=== PATIENT | female | born 1950 | race Caucasian/White ===

== ENCOUNTER 2017-06-06 13:29 | Emergency (ER) | payer MEDICARE ==
[2017-06-06 13:44] VITALS: BP 152/87
--- NOTE | 2017-06-06 14:46 | UC ---
Skin Complaint HPI - HPI Summary HPI Summary: 66 YEAR OLD IN [facility] PRESENTS WITH SEVERE LIP SWELLING AND DIFFICULTY BREATHING. - History of Current Complaint Chief Complaint: UCSkin Time Seen by Provider: 06/06/17 14:46 Stated Complaint: SWOLLEN LIPS Hx Obtained From: Patient Onset/Duration: Sudden Onset Skin Exposure Onset/Duration: Minutes Ago Onset Severity: Severe Current Severity: Severe Pain Scale Used: 0-10 Numeric - Allergy/Home Medications Allergies/Adverse Reactions: Allergies Allergy/AdvReac Type Severity Reaction Status Date / Time Citalopram [From Celexa] Allergy Itching Verified 06/06/17 13:44 Morphine Allergy Itching, Verified 06/02/14 08:03 READNESS, SWELLING Home Medications: Home Medications Tobramycin 0.3% OPHTH.ANTONINA* 1 drop BOTH EYES Q4H 06/06/17 [History Confirmed 01/16] Review of Systems Constitutional: Negative Skin: Other - LIP SWELLING Eyes: Negative ENT: Other - LIP SWELLING Respiratory: Negative Cardiovascular: Negative Gastrointestinal: Negative Genitourinary: Negative Motor: Negative Neurovascular: Negative Musculoskeletal: Negative Neurological: Negative Psychological: Negative All Other Systems Reviewed And Are Negative: Yes PMH/Surg Hx/FS Hx/Imm Hx Previously Healthy: Yes - Surgical History Surgical History: Yes Surgery Procedure, Year, and Place: L knee replacement, Gastro bypass, tubal, R carpel tunnel, choley, R shoulder - Social History Alcohol Use: None Substance Use Type: None Smoking Status (MU): Former Smoker Type: Cigarettes Amount Used/How Often: 2 ppd Length of Time of Smoking/Using Tobacco: 20 yrs When Did the Patient Quit Smoking/Using Tobacco: 1999 Physical Exam Triage Information Reviewed: Yes Vital Signs: Initial Vital Signs Temp 37.0 C 06/06/17 13:35 Pulse 74 06/06/17 13:35 Resp 16 06/06/17 13:35 BP 152/87 06/06/17 13:35 Pulse Ox 100 06/06/17 13:35 Vital Signs Reviewed: Yes Eye Exam: Normal ENT Exam: Normal Dental Exam: Normal Neck exam: Normal Neck: Positive: 1 Respiratory Exam: Normal Cardiovascular Exam: Normal Abdominal Exam: Normal Musculoskeletal Exam: Normal Neurological Exam: Normal Psychological Exam: Normal Skin: Positive: Other - LIP SWELLING Course/Dx - Diagnoses Provider Diagnoses: LIP SWELLING Discharge - Discharge Plan Condition: Stable Disposition: HOME Referrals: Wen Noble MD [Primary Care Provider] -
[2017-06-06] MEDS ORDERED: EPINEPHrine AMP 1 MG/ML IM PRN (14:49)
[2017-06-06] MEDS ORDERED: methylPREDNISolone 125 MG* 2 ML VIAL IM ONE (14:50)
[2017-06-06] MEDS ORDERED: NS 0.9% 1000 ML* 1,000 ML IV ONE (14:50)
[2017-06-06] MEDS ORDERED: diPHENhydraMINE IV* 50 MG/ML 1 ml VIAL (BENADRYL) IV ONE (15:00)
[2017-06-06] MEDS ORDERED: Famotidine IV* 10 MG/ML 2 ML (20 mg) ONE (15:01)
[2017-06-06] MEDS ORDERED: EPINEPHRINE 1 MG/ML 1 ML VIAL ONE (15:19)
== END 2017-06-06 15:20 | disposition home or self-care (01) ==
LOC: UCEAST 13:29
DX: R60.9 Edema, unspecified (principal); Z88.6 Allergy status to analgesic agent
CPT/HCPCS: 96374; 96375; 99213; G0463; J1200; J2930

== ENCOUNTER 2017-06-06 15:30 | Inpatient (IN) | payer MEDICARE ==
[2017-06-06] MEDS ORDERED: Polyethylene Glycol 3350* 17 GM PACKET PO PRN (16:42)
[2017-06-06] MEDS ORDERED: diPHENhydraMINE PO* 25 MG PO SCH (17:00)
--- NOTE | 2017-06-06 17:07 | ED ---
Tawny Milligan Thomas, scribed for Jose Luis Marinelli MD on 06/06/17 at 1607 . Allergic Reaction/Systemic - HPI Summary HPI Summary: The pt is a 66 y/o F referred from [facility] and c/o a lip swelling that began this today at 09:00. She c/o lip swelling and throat tightness that has increased throughout the day but is somewhat relieved since presenting to urgent care. The patient has been treated with Epinephrine 0.3mg, which relieved her symptoms. She was also given Benadryl 50mg IV, Solu-Medrol 125mg IV, and Pepcid 20mg IV. Pt denies rash, pruritus, tongue swelling, CP, and SOB. She has been on Lisinopril for many years. She also recently started an antibiotic eye drop. PMHx: HTN, arthritis, depression. PSHx: Willam-en-Y gastric bypass. SHx: no smoking, no alcohol use. FHx: osteoarthritis, CAD. - History of Current Complaint Chief Complaint: EDAllergicReaction Time Seen by Provider: 06/06/17 15:51 Hx Obtained From: Patient Onset/Duration: Gradual Onset, Started hours ago - onset since this AM at 09:00 , Still Present Timing: Constant Pain Intensity: 0 Pain Scale Used: 0-10 Numeric Character: Swelling - to lip Aggravating Factor(s): Nothing Alleviating Factor(s): Other - Medication as detailed in HPI Associated Signs And Symptoms: Positive: Throat Tightening. Negative: Chest Pain, Difficulty Breathing, Rash, Other: - NEGATIVE: pruritus, tongue swelling, SOB - Allergies/Home Medications Allergies/Adverse Reactions: Allergies Allergy/AdvReac Type Severity Reaction Status Date / Time Citalopram [From Celexa] Allergy Itching Verified 06/06/17 13:44 Morphine Allergy Itching, Verified 06/02/14 08:03 READNESS, SWELLING PMH/Surg Hx/FS Hx/Imm Hx Previously Healthy: No Cardiovascular History: Reports: Hx Hypertension Musculoskeletal History: Reports: Hx Arthritis Psychiatric History: Reports: Hx Depression - Surgical History Surgery Procedure, Year, and Place: L knee replacement, Gastro bypass, tubal, R carpel tunnel, choley, R shoulder - Immunization History Immunizations Up to Date: Yes Infectious Disease History: No Infectious Disease History: Denies: Traveled Outside the [place] in Last 30 Days - Family History Known Family History: Positive: Cardiac Disease, Other - Osteoarthritis - Social History Alcohol Use: None Hx Substance Use: No Substance Use Type: Reports: None Hx Tobacco Use: No Smoking Status (MU): Former Smoker Type: Cigarettes Amount Used/How Often: 2 ppd Length of Time of Smoking/Using Tobacco: 20 yrs Review of Systems Negative: Fever Positive: Other - Lip swelling, throat tightness; NEGATIVE: tongue swelling Negative: Chest Pain Negative: Shortness Of Breath Negative: Rash, Other - NEGATIVE: pruritus All Other Systems Reviewed And Are Negative: Yes Physical Exam Vital Signs On Initial Exam: Initial Vitals Temp Pulse Resp BP Pulse Ox 98 F 88 16 174/82 99 06/06/17 15:38 06/06/17 15:38 06/06/17 15:38 06/06/17 15:38 06/06/17 15:38 - [place] Coma Scale Coma Scale Total: 15 Diagnostics - Vital Signs Vital Signs Temp Pulse Resp BP Pulse Ox 06/06/17 15:57 91 17 154/80 99 06/06/17 15:38 98 F 88 16 174/82 99 - Laboratory Lab Statement: Any lab studies that have been ordered have been reviewed, and results considered in the medical decision making process. Re-Evaluation - Re-Evaluation First Eval Re-Evaluation Time: 17:03 Change: Improved Comment: The patient received solumedrol,benadryl, epi and pepcid. she has slight swelling of the upper lip and also lower lip. Her vitals are ok, and her tongue, throat and breathing are normal in feeling and on exam. I am not giving more epi at this point. She is being admitted to the hospitalists. Allergic Reaction Course/Dx - Course Course Of Treatment: 66 yr old with angioedema, and stable at this point. Admission for further obs to the hospitalists. Dr Jackson calling ENT and they will put in ICU for close monitoring. - Diagnoses Provider Diagnoses: Angioedema - Provider Notifications Discussed Care Of Patient With: Stacy Jackson Time Discussed With Above Provider: 16:06 Instructed by Provider To: Other - I consulted with Dr. Jackson, hospitalist, who will admit the patient to [facility]. Discharge - Discharge Plan Condition: Good Disposition: ADMITTED TO [facility] documentation as recorded by the Tawny bragg Thomas accurately reflects the service I personally performed and the decisions made by me, Jose Luis Marinelli MD.
[2017-06-06] MEDS ORDERED: methylPREDNISolone 125 MG* 2 ML VIAL IV ONE (17:12)
[2017-06-06] MEDS ORDERED: diPHENhydraMINE IV* 50 MG in NS 0.9% 50 ML* 50 ML IVPB ONE (17:12)
[2017-06-06] MEDS ORDERED: Famotidine IV* 10 MG/ML 2 ML (20 mg) IV SLOW PU ONE (17:12)
[2017-06-06 17:38] LABS: Hematocrit 37 % (35-47); Hemoglobin 12.3 g/dl (12.0-16.0); Mean Corpuscular HGB Conc 33 g/dl (31-36); Mean Corpuscular Hemoglobin 30 pg (27-31); Mean Corpuscular Volume 89 fL (80-97); Mean Platelet Volume 9 um3 (7.4-10.4); Red Blood Count 4.16 10^6/ul (4.0-5.4); Red Cell Distribution Width 14 % (10.5-15); White Blood Count 7.3 10^3/ul (3.5-10.8)
[2017-06-06 17:53] LABS: BUN/Creatinine Ratio 15.6 (8-20); Calcium 9.5 mg/dL (8.6-10.3); EGFR African American 64.4 (>60); EGFR Non-African American 50.1 (>60); Potassium 4.3 mmol/L (3.5-5.0)
--- NOTE | 2017-06-06 19:25 | HP ---
CC: Dr. Noble * HISTORY AND PHYSICAL: DATE OF ADMISSION: 06/06/17 TIME OF EVALUATION: 5 p.m. PRIMARY CARE PROVIDER: Dr. Noble. CHIEF COMPLAINT: "My lip is swollen." HISTORY OF PRESENT ILLNESS: Ms. Hernandez is a 66-year-old lady with a past medical history of chronic pain, fibromyalgia, hypertension that presented to [facility] with complaints of lip swelling. The patient states that 3 days ago, she was diagnosed with an eye infection and prescribed tobramycin eye drops that she was taking without issue. This morning , she woke up in her usual state of health and around 10, she started to feel that her bottom lip was swollen. She contacted her PCP and was advised to go to [facility]. There, the swelling had become more severe and she received epinephrine, Solu-Medrol, famotidine, and Benadryl, and was sent to the emergency room for further evaluation. Initially during our interview, the patient stated that the swelling was mostly resolved and her lip felt almost back to normal. As we were finishing our interview, the patient started to complain her upper lip was getting swollen. Please note that she had no change in voice, no difficulty swallowing, no tongue edema. She did have allergic reactions before, but no angioedema. She has also been on lisinopril for hypertension for more than 10 years. She denies itching, chest pain, palpitations, fever, chills, cough, shortness of breath, nausea, vomiting, rash or any other complaints. PAST MEDICAL HISTORY: 1. Hypertension. 2. Fibromyalgia. 3. Chronic pain. MEDICATIONS: 1. Bupropion XL 150 mg p.o. daily. 2. Celecoxib 200 mg p.o. daily. 3. Cyclobenzaprine 10 mg p.o. at bedtime. 4. Gabapentin 300 mg p.o. t.i.d. 5. Lisinopril 10 mg p.o. daily. 6. Pantoprazole 40 mg p.o. daily. 7. MiraLAX 17 g p.o. daily p.r.n. constipation. 8. Tobramycin 1 drop both eyes q.4 hours. ALLERGIES: With MORPHINE and CITALOPRAM, the patient had itching. FAMILY HISTORY: Father had a history of coronary artery disease. SOCIAL HISTORY: The patient was a smoker. She quit 20 years ago. No history of alcohol or drug use. Surrogate decision maker is her son, Troy Purdy. Phone number is [phone]. REVIEW OF SYSTEMS: A 14-point review of systems was performed and all the pertinent negative and positive findings are in the HPI. PHYSICAL EXAMINATION GENERAL: The patient is a pleasant elderly lady sitting up in the ED stretcher , in no acute distress. VITAL SIGNS: Temperature 98.0, heart rate is 91, respiratory rate is 17, oxygen saturation is 99% on room air, blood pressure is 154/80. HEENT: Pupils are equal. Moist mucous membranes. There is minimal bottom lip edema and some edema on her upper lip middle part, but there is no tongue swelling and her voice is normal. CHEST: Breath sounds clear bilaterally. No added sounds. CVS: Normal S1, S2. Regular rate and rhythm. ABDOMEN: Soft. Bowel sounds are present. EXTREMITIES: No edema. NEUROLOGIC: She is alert, awake, oriented x3. Able to move all 4 extremities. SKIN: No rashes. LABORATORY DATA: The patient had no laboratory tests done. CBC and BMP are ordered at the time of this dictation. ASSESSMENT AND PLAN: Ms. Hernandez is a 66-year-old lady with a past medical history of hypertension, chronic pain, fibromyalgia, had developed angioedema with recurrence after treatment in the emergency room. 1. Angioedema. It could be secondary to the new eye drop for infection as this is a new medication, but she is also on an CARLOS inhibitor. Both drugs will be discontinued. Initially, the patient was going to be admitted to the medical floor but as she is having recurrence of her symptoms, she will be admitted to the intensive care unit. We are going to continue steroids, H1 and H2 blockers. If her symptoms continue to worsen, she may require more epinephrine, but I believe at this point the symptoms are still mild and we can watch her for now. I contacted ENT showroom sales consultant (Dr. Cantu) just to make him aware that we have a patient with angioedema in the intensive care unit. At this point, she has no signs of airway compromise but he is aware of the possibility of the need for an emergent consultation overnight. 2. Hypertension. I am going to discontinue her lisinopril at this point and we are going to monitor her blood pressure for now. If it trends up, we are probably going to start her on amlodipine as she should avoid CARLOS inhibitors in the future. 3. Chronic pain. We will continue her usual medications. 4. DVT prophylaxis. The patient has a score of 3 on the DVT Prophylaxis Risk Assessment Guide and she will be started on subcutaneous heparin. 5. Code status. The patient is full. TIME SPENT: Approximately 60 minutes was spent with patient interview, medical records review, physical examination to complete admission, more than half of this time was spent [id number] with patient and coordination of care. [id number]/[facility] #: [id number] ZAHIDA
[2017-06-06] MEDS: Acetaminophen TAB* 325 MG PO PRN (20:13)
[2017-06-06] MEDS ORDERED: Famotidine TAB* 20 MG PO SCH (21:00)
[2017-06-06] MEDS ORDERED: Cyclobenzaprine TAB* 10 MG PO SCH (21:00)
[2017-06-06] MEDS ORDERED: Gabapentin CAP(*) 300 MG PO SCH (21:00)
[2017-06-06] MEDS: Ciprofloxacin 0.3% OPTH.SOL* 2.5 ML BTL BOTH EYES SCH ×2 (21:24→21:38)
[2017-06-06] MEDS: Heparin VIAL(*) 5000 UNITS/ML VIAL (FIVE THOUSAND) SUBCUT SCH (21:30)
[2017-06-06] MEDS: Famotidine IV* 10 MG/ML 2 ML (20 mg) IV SLOW PU SCH (21:30)
[2017-06-06] MEDS: diPHENhydraMINE IV* 50 MG in NS 0.9% 50 ML* 50 ML IVPB SCH (23:11)
[2017-06-07] MEDS: Ciprofloxacin 0.3% OPTH.SOL* 2.5 ML BTL BOTH EYES SCH ×3 (02:20→10:07)
[2017-06-07] MEDS ORDERED: Gabapentin CAP(*) 300 MG ONE (03:12)
[2017-06-07] MEDS: diPHENhydraMINE IV* 50 MG in NS 0.9% 50 ML* 50 ML IVPB SCH ×2 (05:02→10:45)
[2017-06-07] MEDS: Heparin VIAL(*) 5000 UNITS/ML VIAL (FIVE THOUSAND) SUBCUT SCH (06:06)
[2017-06-07] MEDS ORDERED: Omeprazole CAP* 20 MG PO SCH (07:30)
[2017-06-07] MEDS ORDERED: celeCOXIB CAP* 100 MG PO SCH (08:30)
[2017-06-07] MEDS ORDERED: predniSONE TAB* 20 MG PO SCH (08:30)
[2017-06-07] MEDS ORDERED: BuPROPion XL* 150 MG TAB.XL PO SCH (09:00)
[2017-06-07] MEDS ORDERED: methylPREDNISolone SOD 40 MG* 1 ML VIAL IV SCH (09:00)
[2017-06-07] MEDS ORDERED: Influenza VAC *QUAD* 2017-18* 0.5 ML SYRINGE IM ONE (09:00)
[2017-06-07] MEDS ORDERED: Gabapentin CAP(*) 300 MG PO SCH ×2 (09:00→21:00)
[2017-06-07] MEDS: Famotidine IV* 10 MG/ML 2 ML (20 mg) IV SLOW PU SCH (09:20)
--- NOTE | 2017-06-07 10:04 | PN ---
Subjective Date of Service: 06/07/17 Interval History: Patient seen and examined at bedside. Patient denies any shortness of breath and reports that her lip swelling has completely resolved. SBP 120-140s. Denies pain.. Has not yet been up out of bed. Family History: Unchanged from Admission Social History: Unchanged from Admission Past Medical History: Unchanged from Admission Objective Active Medications: Acetaminophen (Tylenol Tab*) 650 mg PO Q6H PRN Bupropion HCl (Wellbutrin Xl *) 150 mg PO DAILY GONZALES Celecoxib (Celebrex Cap*) 200 mg PO DAILY WITH MEAL GONZALES Ciprofloxacin HCl (Cipro 0.3% Opth*) 1 drop BOTH EYES Q4HR GONZALES Cyclobenzaprine HCl (Flexeril Tab*) 10 mg PO BEDTIME GONZALES Famotidine (Pepcid Iv*) 20 mg IV SLOW PU BID GONZALES Gabapentin (Neurontin Cap(*)) 300 mg PO 0900 GONZALES Gabapentin (Neurontin Cap(*)) 600 mg PO 2100 GONZALES Heparin Sodium (Porcine) (Heparin Vial(*)) 5,000 units SUBCUT Q8HR GONZALES Diphenhydramine HCl 50 mg/ (Sodium Chloride) 51 mls @ 102 mls/hr IVPB Q6H GONZALES Methylprednisolone Sodium Succinate (Solu-Medrol 40 Mg) 40 mg IV Q12H GONZALES Omeprazole (Prilosec Cap*) 20 mg PO DAILY@0730 GONZALES Polyethylene Glycol/Electrolytes (Miralax*) 17 gm PO DAILY PRN Vital Signs 06/06/17 06/06/17 06/06/17 16:30 16:43 17:00 Temperature 97.4 F Pulse Rate 88 92 Respiratory 19 17 Rate Blood Pressure 154/77 179/82 (mmHg) O2 Sat by Pulse 100 99 Oximetry 06/06/17 06/06/17 06/06/17 17:28 17:30 18:01 Temperature Pulse Rate 86 Respiratory 20 14 10 Rate Blood Pressure 155/84 (mmHg) O2 Sat by Pulse 99 Oximetry 06/06/17 06/06/17 06/06/17 18:04 18:06 18:09 Temperature 97.4 F Pulse Rate 88 80 86 Respiratory 19 24 21 Rate Blood Pressure 165/89 182/95 172/98 (mmHg) O2 Sat by Pulse 99 99 100 Oximetry 06/06/17 06/06/17 06/06/17 18:15 18:33 18:45 Temperature Pulse Rate 83 88 81 Respiratory 35 20 17 Rate Blood Pressure 177/97 165/89 161/90 (mmHg) O2 Sat by Pulse 100 98 98 Oximetry 06/06/17 06/06/17 06/06/17 19:00 19:15 19:31 Temperature Pulse Rate 83 88 89 Respiratory 27 17 19 Rate Blood Pressure 152/95 155/94 164/91 (mmHg) O2 Sat by Pulse 97 96 98 Oximetry 06/06/17 06/06/17 06/06/17 19:43 19:45 20:00 Temperature 99.8 F Pulse Rate 90 Respiratory 15 23 Rate Blood Pressure 151/93 (mmHg) O2 Sat by Pulse 97 Oximetry 06/06/17 06/06/17 06/06/17 20:15 20:30 20:43 Temperature 99 F Pulse Rate 91 90 Respiratory 20 25 Rate Blood Pressure 172/94 165/93 (mmHg) O2 Sat by Pulse 98 98 Oximetry 06/06/17 06/06/17 06/06/17 20:46 21:00 21:16 Temperature Pulse Rate 95 92 99 Respiratory 22 20 16 Rate Blood Pressure 169/94 154/87 (mmHg) O2 Sat by Pulse 96 96 96 Oximetry 06/06/17 06/06/17 06/06/17 21:30 21:45 22:00 Temperature Pulse Rate 102 101 100 Respiratory 27 29 17 Rate Blood Pressure 181/87 159/102 144/92 (mmHg) O2 Sat by Pulse 97 98 96 Oximetry 06/06/17 06/06/17 06/06/17 22:15 22:30 22:45 Temperature Pulse Rate 97 93 92 Respiratory 17 18 18 Rate Blood Pressure 141/85 138/83 132/80 (mmHg) O2 Sat by Pulse 93 91 90 Oximetry 06/06/17 06/06/17 06/06/17 23:00 23:15 23:23 Temperature 98.8 F Pulse Rate 92 91 Respiratory 18 17 Rate Blood Pressure 137/80 135/79 (mmHg) O2 Sat by Pulse 89 95 Oximetry 06/06/17 06/06/17 06/07/17 23:31 23:45 00:00 Temperature Pulse Rate 84 84 82 Respiratory 14 17 17 Rate Blood Pressure 142/75 127/83 141/83 (mmHg) O2 Sat by Pulse 98 94 95 Oximetry 06/07/17 06/07/17 06/07/17 00:08 00:15 00:30 Temperature Pulse Rate 85 82 89 Respiratory 17 17 16 Rate Blood Pressure 134/90 130/75 (mmHg) O2 Sat by Pulse 94 95 94 Oximetry 06/07/17 06/07/17 06/07/17 00:46 01:00 01:15 Temperature Pulse Rate 88 89 89 Respiratory 14 17 17 Rate Blood Pressure 137/79 138/81 142/87 (mmHg) O2 Sat by Pulse 97 96 95 Oximetry 06/07/17 06/07/17 06/07/17 02:00 03:00 04:00 Temperature 98.1 F Pulse Rate 94 81 79 Respiratory 17 23 23 Rate Blood Pressure 142/78 130/90 (mmHg) O2 Sat by Pulse 96 98 100 Oximetry 06/07/17 06/07/17 06/07/17 04:02 05:00 05:58 Temperature Pulse Rate 82 74 Respiratory 14 15 14 Rate Blood Pressure 157/103 125/75 (mmHg) O2 Sat by Pulse 95 96 Oximetry 06/07/17 06/07/17 06/07/17 06:00 07:00 08:00 Temperature 98.5 F Pulse Rate 73 71 Respiratory 14 13 15 Rate Blood Pressure 127/77 129/93 (mmHg) O2 Sat by Pulse 97 100 Oximetry 06/07/17 06/07/17 06/07/17 08:02 08:04 09:00 Temperature Pulse Rate 82 84 77 Respiratory 15 16 10 Rate Blood Pressure 154/93 129/87 (mmHg) O2 Sat by Pulse 88 95 99 Oximetry Oxygen Devices in Use Now: None Appearance: sitting up in bed, NAD Eyes: No Scleral Icterus, PERRLA Ears/Nose/Mouth/Throat: NL Teeth, Lips, Gums, Clear Oropharnyx, - - lip swelling resolved. Neck: NL Appearance and Movements; NL JVP Respiratory: Symmetrical Chest Expansion and Respiratory Effort, Clear to Auscultation Cardiovascular: NL Sounds; No Murmurs; No JVD, RRR Abdominal: NL Sounds; No Tenderness; No Distention Extremities: No Edema Skin: No Rash or Ulcers Neurological: Alert and Oriented x 3 Lines/Tubes/Other Access: Clean, Dry and Intact Peripheral IV Nutrition: Taking PO's Result Diagrams: 06/06/17 17:21 06/06/17 17:21 Assess/Plan/Problems-Billing Patient is a 66 y/o F w/ PMH significant for HTN, chronic pain, fibromyalgia who developed angioedema with reoccurence in the emergency room. - Patient Problems (1) Angioedema (2) HTN (hypertension) (3) Chronic pain (4) Fibromyalgia (5) DVT prophylaxis (6) Full code status Status and Disposition: Inpatient for angioedema. Patient stable to be discharged home with steroid taper.
[2017-06-07 10:28] VITALS: BP 131/76
[2017-06-07] MEDS ORDERED: amLODIPine TAB* 5 MG PO SCH (11:00)
[2017-06-07] MEDS: Acetaminophen TAB* 325 MG PO PRN (11:07)
--- NOTE | 2017-06-08 02:51 | DS ---
CC: Dr. Noble * DISCHARGE SUMMARY: DATE OF ADMISSION: 06/06/17 DATE OF DISCHARGE: 06/07/17 PRIMARY CARE PHYSICIAN: Dr. Wen Noble. ATTENDING PHYSICIAN: Kaveh Mayo MD * (report dictated by Lindsay Sepulveda NP). PRIMARY DIAGNOSIS: Angioedema. SECONDARY DIAGNOSES: 1. Hypertension. 2. Chronic pain. MEDICATIONS AT DISCHARGE: New medications: 1. Cipro eye drops 1 drop both eyes every 4 hours. 2. Prednisone taper 10 mg tablets 4 tablets for 2 days, 3 tablets for 2 days, 2 tablets for 2 days, 1 tablet for 2 days, then stop. Following are all medications the patient came in on: 1. Neurontin 300 mg oral at 9 a.m., 600 mg oral at bedtime. 2. MiraLAX 17 g oral daily as needed. 3. Celebrex 200 mg oral daily. 4. Flexeril 10 mg oral at bedtime. 5. Protonix 40 mg oral daily. 6. Bupropion XL 150 mg oral daily. The patient has been instructed to discontinue tobramycin and lisinopril. HISTORY OF PRESENT ILLNESS AND HOSPITAL COURSE: Ms. Hernandez is a 66-year-old lady with past medical history of chronic pain, fibromyalgia, hypertension who presented to the [facility] care with complaints of lip swelling. She had recently been started on tobramycin eye drops, yet in addition, she also took lisinopril. She has been on lisinopril for 10 years. She went to [facility] for lip swelling and received epinephrine, Solu-Medrol, Pepcid and Benadryl and was sent to the emergency room for further evaluation. In the emergency room, the patient felt like now her upper lip was swelling. She did not have any tongue edema yet. Given the concern for her airway, she was admitted to the intensive care unit and monitored overnight. IV steroids were continued. Contact was made with ENT in the event that she would need an emergent consultation. Fortunately, this morning with steroids and Benadryl, her swelling has completely resolved. She is maintaining an oxygen saturation greater than 95% on room air. She is ambulating without difficulty, without any shortness of breath. For her hypertension, lisinopril was discontinued. During her hospitalization here, her systolic blood pressure ranged from 120 to 140 and diastolic 70 to 80. For now, I will not start an additional agent as her blood pressure is just borderline hypertensive. She will need to follow up with her primary care provider for a repeat blood pressure check and at that time the decision can be made to switch to a different antihypertensive if necessary. For her chronic pain, Neurontin and Flexeril were continued. On 06/07/17, vital signs were as follows: Temperature 98.5, heart rate 85, respiratory rate 14, oxygen saturation 97% on room air, blood pressure 131/76. At this point, she was stable for discharge. DISCHARGE PLANNING: The patient is discharged on a regular diet with activity as tolerated. She is being discharged on an 8-day steroid taper. The patient should follow up with her primary care provider, Dr. Noble within 5 to 7 days. The patient should return to the hospital if she experiences any repeat swelling or difficulty breathing. I have reviewed all the instructions with the patient. She is agreeable with the discharge today. This is a summarized report of the complex medical history and hospital stay. For more details, please see the entire medical record. TIME SPENT: Time for this discharge was 60 minutes and over 35 minutes were spent with the patient discussing medications at discharge and followup instructions. CONDITION ON DISCHARGE: Stable. LINDSAY SEPULVEDA NP [id number]/[facility] #: [id number] ZAHIDA
== END 2017-06-07 11:50 | disposition home or self-care (01) | DRG 916 ==
LOC: ED 15:30 → OBSVTOIN 16:27 → INTOOBSV 16:27 → MEDTELE 16:27 → UNDOADMOB 16:27 → ICU 16:27 → UNDODISIN 06-07 11:30
PROVIDERS: ADMIT Internal Medicine; ATTEND Hospitalist
DX: T78.3XXA Angioneurotic edema, initial encounter (principal); I10 Essential (primary) hypertension; T49.5X5A Adverse effect of ophthalmological drugs and preparations, initial encounter; T88.7XXA Unspecified adverse effect of drug or medicament, initial encounter; X58.XXXA Exposure to other specified factors, initial encounter; Y92.009 Unspecified place in unspecified non-institutional (private) residence as the place of occurrence of the external cause; G89.29 Other chronic pain; M79.7 Fibromyalgia; Z79.899 Other long term (current) drug therapy; Z88.5 Allergy status to narcotic agent; Z88.8 Allergy status to other drugs, medicaments and biological substances; Z82.49 Family history of ischemic heart disease and other diseases of the circulatory system; Z87.891 Personal history of nicotine dependence
CPT/HCPCS: 36415; 80048; 85025; 87641; 96374; 96375; 99213; A9270-GY; G0463; J1200; J1644; J2920; J2930

== ENCOUNTER 2019-04-12 11:28 | Emergency (ER) | payer MEDICARE ==
--- NOTE | 2019-04-12 11:37 | UC ---
Laceration HPI - HPI Summary HPI Summary: Patient is 68 year old female, who present today to the urgent care with right forearm laceration. She was shampooing her couch and fell and cut her right arm on 04/06/19. PT states that she has been trying care for it at home and is concerned its not healing well. She did not seek any medical help at the time of injury She denies any fever, chills or any drainage from the wound. She does not recall when was her last tetanus shot and she will call her doctor tomorrow to find that out - History Of Current Complaint Stated Complaint: ARM LACERATION Time Seen by Provider: 04/12/19 11:31 Hx Obtained From: Patient - Allergies/Home Medications Allergies/Adverse Reactions: Allergies Allergy/AdvReac Type Severity Reaction Status Date / Time chlorthalidone Allergy Unknown Verified 04/12/19 11:42 Reaction Details citalopram [From Celexa] Allergy Itching Verified 04/12/19 11:39 lisinopril Allergy Anaphylatic Verified 04/12/19 11:39 Shock morphine Allergy Itching Verified 04/12/19 11:39 tobramycin Allergy Unknown Verified 04/12/19 11:42 Reaction Details Home Medications: Home Medications Amlodipine Besylate [Norvasc] 5 mg PO DAILY WITH MEAL 04/12/19 [History Confirmed 04/12/19] Biotin 5,000 mcg PO DAILY WITH MEAL 04/12/19 [History Confirmed 04/12/19] Cholecalciferol (Vitamin D3) [Vitamin D3] 2,000 unit PO DAILY WITH MEAL [History Confirmed 04/12/19] Hydrochlorothiazide TAB* [Hydrodiuril TAB*] 25 mg PO DAILY 04/12/19 [History Confirmed 04/12/19] Krill/Om-3/Dha/Epa/Phospho/Ast [Megared [place]-3 Krill Oil 500 mg] 1 cap PO DAILY WITH MEAL 04/12/19 [History Confirmed 04/12/19] Multivit with Minerals No.55 [Centrum Flavor Burst Adult] 1 each PO DAILY [History Confirmed 04/12/19] Olopatadine 0.1% OPHTH (NF) [Patanol 0.1% OPHTH (NF)] 1 drop BOTH EYES SEE INSTRUCTIONS 04/12/19 [History Confirmed 04/12/19] Tramadol HCl 50 mg PO Q6HR 04/12/19 [History Confirmed 04/12/19] PMH/Surg Hx/FS Hx/Imm Hx - Additional Past Medical History Additional PMH: Past Medical History : Hypertension, skin cancer Past Surgical History: Left knee TKR, gastric bypass, right carpal tunnel surgery Family History : non contributory Social History : No alcohol, former smoker, no drug use. Previously Healthy: Yes - Surgical History Surgical History: Yes Surgery Procedure, Year, and Place: L knee replacement, Gastro bypass, tubal, R carpel tunnel, choley, R shoulder - Family History Known Family History: Positive: Cardiac Disease, Other - Osteoarthritis, Non- Contributory - Social History Alcohol Use: None Substance Use Type: None Smoking Status (MU): Former Smoker Type: Cigarettes Amount Used/How Often: 2 ppd Length of Time of Smoking/Using Tobacco: 20 yrs When Did the Patient Quit Smoking/Using Tobacco: 1999 - Immunization History Most Recent Influenza Vaccination: last year Most Recent Pneumonia Vaccination: never Review of Systems All Other Systems Reviewed And Are Negative: Yes Constitutional: Positive: Negative Skin: Positive: Other - Laceration of her right forearm Eyes: Positive: Negative ENT: Positive: Negative Respiratory: Positive: Negative Cardiovascular: Positive: Negative Gastrointestinal: Positive: Negative Genitourinary: Positive: Negative Motor: Positive: Negative Neurovascular: Positive: Negative Musculoskeletal: Positive: Negative Neurological: Positive: Negative Psychological: Positive: Negative Is Patient Immunocompromised?: No Physical Exam - Summary Physical Exam Summary: Vital Signs Reviewed: Yes A+Ox3, no distress Eyes: Conjunctiva Clear ENT: Hearing grossly normal neck: supple Respiratory: Positive: No respiratory distress, No accessory muscle use Cardiovascular: skin color reflect adequate perfusion Musculoskeletal Exam: GREWAL x 4 without difficulty Neurological: Positive: Alert, ambulatory without difficulty Psychological: Positive: Normal Response To Family Skin: Laceration with gaping of the skin measuring 6 cmx2cm noted on the volar aspect of the right forearm. Slightly raised margins with mild erythema. granulation tissue noted without any pus or drainage. No fluctuation Triage Information Reviewed: Yes Vital Signs Reviewed: Yes Laceration Course/Dx - Course/Dx Course Of Treatment: During the visit today, discussed the findings and further plan. Since it has been 6 days , laceration will heal with secondary intention and it appears to have the look nice cannulation tissue and showing signs of good healing without any infection. I will prescribe prophylactic antibiotic to the pharmacy . Discussed wound care. Wound was dressed here in the clinic today with nonadhesive dressing.. Plan to refer her to [facility] for wound healing, she will call and schedule an appointment. She is not sure when she got her last tetanus shot. She will call her primary care doctor's office tomorrow to find that out and if more than 5 years she will get the tetanus shot there. Patient expressed understanding . - Diagnosis Provider Diagnosis: Laceration Discharge - Sign-Out/Discharge Documenting (check all that apply): Patient Departure All imaging exams completed and their final reports reviewed: No Studies - Discharge Plan Condition: Stable Disposition: HOME Patient Education Materials: Acute Wound Care (ED), Chronic Wound Care (ED) Referrals: Wen Noble MD [Primary Care Provider] - If Needed Additional Instructions: Please start taking the medication as prescribed to the pharmacy . Refer to [facility] for wound healing .Call to make an appointment. Follow up with your primary care doctor in 1 week Patients blood pressure slightly high in Urgent care today , plan follow up with PCP for better control Return to Urgent care / ER if symptoms get worse. - Billing Disposition and Condition Condition: STABLE Disposition: Home
[2019-04-12 11:38] VITALS: BP 121/69
== END 2019-04-12 12:39 | disposition home or self-care (01) ==
LOC: UCEAST 11:28
DX: S51.811A Laceration without foreign body of right forearm, initial encounter (principal); W26.9XXA Contact with unspecified sharp object(s), initial encounter; Y93.E9 Activity, other interior property and clothing maintenance; Y92.019 Unspecified place in single-family (private) house as the place of occurrence of the external cause; Y99.8 Other external cause status; I10 Essential (primary) hypertension; Z87.891 Personal history of nicotine dependence; Z98.84 Bariatric surgery status; Z88.5 Allergy status to narcotic agent
CPT/HCPCS: 99212; G0463

== ENCOUNTER 2019-05-05 14:21 | Emergency (ER) | payer MEDICARE ==
[2019-05-05] MEDS ORDERED: Famotidine IV* 10 MG/ML 2 ML (20 mg) IV SLOW PU ONE (14:27)
[2019-05-05] MEDS ORDERED: methylPREDNISolone 125 MG* 2 ML VIAL IV ONE (14:27)
--- NOTE | 2019-05-05 14:33 | UC ---
Allergic Reaction HPI - HPI Summary HPI Summary: 68 yo female presents here after sustaining multiple bee stings about an hour prior to arrival here Complains of skin itching and burning Bilateral hand edema no facial edema no throat tightness no CP or SOB no n/v/d No hx bee sting allergy she took 50 mg of bendadryl prior to coming in She has not taken her celebrex x 1 week - History of Current Complaint Chief Complaint: UCAllergicReaction Stated Complaint: BEE STINGS Hx Obtained From: Patient Onset/Duration: Sudden Onset, Lasting Minutes Severity Initially: Severe Severity Currently: Severe Pain Intensity: 9 Pain Scale Used: 0-10 Numeric Location: Diffuse Character: Pruritus, Pain Aggravating Factor(s): Nothing Alleviating Factor(s): Nothing Associated Signs And Symptoms: Positive: Rash. Negative: Abdominal Pain, Chest Pain, Cough Wheezing, Diaphoresis, Difficulty Breathing, Hoarseness, Lightheadedness, Nausea, Syncope, Throat Tightening, Vomiting - Related Hx Possible Reaction To: Insect - Allergies/Home Medications Allergies/Adverse Reactions: Allergies Allergy/AdvReac Type Severity Reaction Status Date / Time chlorthalidone Allergy Unknown Verified 05/05/19 14:27 Reaction Details citalopram [From Celexa] Allergy Itching Verified 05/05/19 14:27 lisinopril Allergy Anaphylatic Verified 05/05/19 14:27 Shock morphine Allergy Itching Verified 05/05/19 14:27 tobramycin Allergy Unknown Verified 05/05/19 14:27 Reaction Details Home Medications: Home Medications diphenhydrAMINE HCl [Benadryl Allergy 25 MG CAP] 50 mg PO DAILY PRN 05/05/19 [ History Confirmed 05/05/19] PMH/Surg Hx/FS Hx/Imm Hx Previously Healthy: Yes Cardiovascular History: Hypertension - Surgical History Surgical History: Yes Surgery Procedure, Year, and Place: L knee replacement, Gastro bypass, tubal, R carpel tunnel, choley, R shoulder - Family History Known Family History: Positive: Cardiac Disease, Other - Osteoarthritis, Non- Contributory - Social History Alcohol Use: None Substance Use Type: None Smoking Status (MU): Former Smoker Type: Cigarettes Amount Used/How Often: 2 ppd Length of Time of Smoking/Using Tobacco: 20 yrs When Did the Patient Quit Smoking/Using Tobacco: 1999 - Immunization History Most Recent Influenza Vaccination: last year Most Recent Tetanus Shot: 2019 Most Recent Pneumonia Vaccination: never Review of Systems All Other Systems Reviewed And Are Negative: Yes Constitutional: Positive: Negative Skin: Positive: Rash Eyes: Positive: Negative ENT: Positive: Negative Respiratory: Positive: Negative Cardiovascular: Positive: Negative Gastrointestinal: Positive: Negative Genitourinary: Positive: Negative Motor: Positive: Negative Neurovascular: Positive: Negative Musculoskeletal: Positive: Edema Neurological: Positive: Negative Psychological: Positive: Negative Physical Exam Triage Information Reviewed: Yes Appearance: Well-Appearing, No Pain Distress, Well-Nourished Vital Signs: Initial Vital Signs Temp 98.3 F 05/05/19 14:23 Pulse 81 05/05/19 14:23 Resp 16 05/05/19 14:23 BP 129/101 05/05/19 14:23 Pulse Ox 96 05/05/19 14:23 Vital Signs Reviewed: Yes Eyes: Positive: Conjunctiva Clear ENT: Positive: Hearing grossly normal, Pharynx normal, Uvula midline, Other - no swollen lids/lips/tongue, no stridor. Negative: Nasal congestion, Nasal drainage, Tonsillar swelling, Tonsillar exudate, Trismus, Muffled voice, Hoarse voice, Dental tenderness, Sinus tenderness Dental: Negative: Abscess @ Neck: Positive: Supple, Nontender, No Lymphadenopathy Respiratory: Positive: Lungs clear, Normal breath sounds, No respiratory distress, No accessory muscle use Cardiovascular: Positive: RRR, No Murmur Musculoskeletal: Positive: Edema @ - local reaction from stings of hands causing dorsal hand edema Neurological: Positive: Alert Psychological Exam: Normal Skin Exam: Other - multiple stings hands and feet showing significant redness and swelling locally. NO HIVES, NO DIFFUSE ERTYHEMA. Re-Evaluation - Re-Evaluation First Eval Re-Evaluation Time: 15:25 Change: Improved - still itchy but decreased redness and swelling Allergic Reaction Course/Dx - Differential Dx/Diagnosis Provider Diagnosis: Local reaction to bee sting Discharge ED - Sign-Out/Discharge Documenting (check all that apply): Patient Departure All imaging exams completed and their final reports reviewed: No Studies - Discharge Plan Condition: Stable Disposition: HOME Prescriptions: Famotidine TAB* [Pepcid 20 MG TAB*] 20 mg PO DAILY #7 tab Fexofenadine (NF) [Myra (NF)] 60 mg PO BID #10 tab predniSONE [Deltasone 20 MG TAB] 20 mg PO DAILY #2 tab Patient Education Materials: Insect Bite or Sting (ED) Referrals: Wen Noble MD [Primary Care Provider] - 2 Days (if not better) - Billing Disposition and Condition Condition: STABLE Disposition: Home
[2019-05-05] MEDS ORDERED: Ketorolac INJ* 30 MG/ML 1 ML VIAL IV ONE (14:53)
[2019-05-05 15:19] VITALS: BP 131/80
== END 2019-05-05 15:30 | disposition home or self-care (01) ==
LOC: UCEAST 14:21
DX: T63.441A Toxic effect of venom of bees, accidental (unintentional), initial encounter (principal); Y92.9 Unspecified place or not applicable; I10 Essential (primary) hypertension; Z87.891 Personal history of nicotine dependence
CPT/HCPCS: 96374; 96375; 99212; G0463; J1885; J2930

== ENCOUNTER 2019-09-03 11:17 | Emergency (ER) | payer MEDICARE ==
--- OUTSIDE RECORDS SUMMARY | 2019-09-03 11:25 | XMS REPORT | Continuity of Care Document ---
:1950 External Reference #:[id number] Author Name Feli Joyner N.P. (transmitted by agent of provider Catrina De Paz) Address [address], [place] [address] Care Team Providers Name Role Phone Wen Noble MD - Internal Care Team Information Burrer Operator Medicine Loreto Palomares O.D. - Heater Operator Care Team Information Burrer Operator Problems Active Problems Provider Date Hyperlipidemia Radha Shell M.D. Onset: 11/15/2015 Essential hypertension Radha Shell M.D. Onset: 11/15/2015 Allergic rhinitis Radha Shell M.D. Onset: 11/15/2015 Degenerative joint disease involving Jose Luis Drew M.D. Onset: 11/15/2015 multiple joints Gastroesophageal reflux disease Jose Luis Drew M.D. Onset: 11/15/2015 Localized, primary osteoarthritis of the Neetu Jones MD Onset: 07/12/2017 pelvic region and thigh Psoas tendinitis Neetu Jones MD Onset: 07/12/2017 Closed fracture pubis Neetu Jones MD Onset: 07/12/2017 Social History Type Date Description Comments Sex Unknown Tobacco Use Start: [birth year] End: Former Cigarette Smoker 09/02/96 ETOH Use Denies alcohol use Tobacco Use Start: Unknown End: Patient is a former smoker Unknown Tobacco Use Start: Unknown 2 pk per day 10 yr Smoking Status Reviewed: 07/21/19 2 pk per day 10 yr Exercise Type/Frequency Exercises rarely Allergies, Adverse Reactions, Alerts Active Allergies Reaction Severity Comments Date Morphine rash, itching 12/01/2007 Celexa Itching 07/31/2016 Lisinopril angioedema 06/21/2017 Tobramycin Angioedema ? 06/21/2017 Chlorthalidone stomach ache 05/13/2018 Inactive Allergies NKDA 08/20/2007 NKDA 11/15/2015 Medications Active Medications SIG Qnty Indications Ordering Date Provider Amoxicillin/Clavulanate one tablet by 20tabs J01.90 Feli Varn, Potassium mouth twice N.P. 9 875-125mg Tablets daily for 10 days Diflucan 1 tablet by 3tabs Feli Varn, 150mg Tablets mouth every 3 N.P. 9 days for 3 doses Labetalol HCL take 1 tablet by 60tabs I10 Wen 100mg Tablets mouth twice a Cotton, M.D. 9 day Bupropion Hydrochloride take 1 tablet by 90tabs Wen ER (XL) mouth once daily Cotton, M.D. 9 150mg Tablets ER 24HR Hydrochlorothiazide take 1 tablet by 90tabs I10 Wen 25mg mouth once daily Cotton, M.D. 8 Tablets Amlodipine Besylate take 1 tablet by 60tabs I10 Wen 5mg Tablets mouth twice a Cotton, M.D. 8 day Pantoprazole Sodium take 1 tablet by 90tabs Wen 40mg mouth once daily Cotton, M.D. [address] Brady take one capsule 360caps Wen 1gm Capsules by mouth twice a Cotton, M.D. 8 day Tramadol HCL take one to 2 180tabs Wen 50mg Tablets tablets every 6 Cotton, M.D. 8 hours if needed...max 6/day Celecoxib take 1 capsule 90caps Wen 200mg Capsules by mouth once Cotton, M.D. 7 daily Gabapentin take 1 to 2 150caps M79.669 Wen 300mg Capsules capsules by Cotton, M.D. 7 mouth three times a day Multivitamin Adult 1 by mouth every Unknown Tablets day 0 Vitamin C 1 by mouth every Unknown 1000mg Capsules day 0 Biotin 1 tab day Unknown 5000mcg Capsules 0 Vitamin E Unknown Tablets 0 Olopatadine HCL 1 drop in eyes Loreto Palomares, 0.1% Solution as needed O.D. 0 Megared [place]-3 take 1 by mouth 30caps Wen Krill Oil Extra Strength per day Selene Noble 0 500mg Capsules B12 Fast Dissolve take 2 Unknown 500mcg sublingual daily 0 Tablets Dispers D3 Super Strength take one Unknown 2000Unit capsule/tablet 0 Capsules daily by mouth Medications Administered in Office Medication SIG Qnty Indications Ordering Provider Date Triamcinolone (Kenalog) Velvet Reynoso PA-C 04/16/2017 Injection Immunizations CPT Code Status Date Vaccine Reaction Lot # [id number] Given 04/17/2019 Tdap - [id number] Tetanus/Diptheria/Acellular Pertussis [id number] Given 05/15/2018 Influenza Virus Vaccine, Quadrivalent, Split, Preservative Free [id number] Given 08/23/2017 Pneumonia Vaccine [id number] 98122 Given 06/21/2017 Influenza Virus Vaccine, [id number] Quadrivalent, Split, Preservative Free 28048 Given 07/03/2016 Pneumococcal Conjugate no immediate reaction [id number] Vaccine 13 Valent For noted .. hh Intramuscular Use 16862 Given 02/21/2006 Td (History By Patient) 52190 Given 06/30/1996 Pneumovax (History By Patient) Vital Signs Date Vital Result Comment 07/21/2019 11:49am Height 64 inches 5'4" Weight 163.50 lb Heart Rate 55 /min BP Systolic Sitting 120 mmHg BP Diastolic Sitting 70 mmHg Body Temperature 97.3 F O2 % BldC Oximetry 98 % BMI (Body Mass Index) 28.1 kg/m2 02/12/2019 2:43pm Height 64 inches 5'4" Weight 165.00 lb Heart Rate 62 /min BP Systolic 144 mmHg recheck BP Diastolic 78 mmHg recheck BP Systolic Sitting 147 mmHg BP Diastolic Sitting 84 mmHg O2 % BldC Oximetry 99 % BMI (Body Mass Index) 28.3 kg/m2 Results Test Acquired Date Facility Test Result H/L Range Note Basic Metabolic 02/06/2019 [facility] Sodium 138 mmol/L Normal 135-145 Panel [address] [place] [address] [phone] Potassium 4.0 mmol/L Normal 3.5-5.0 Chloride 101 mmol/L Normal 101-111 Co2 Carbon Dioxide 30 mmol/L Normal 22-32 Anion Gap 7 mmol/L Normal 2-11 Glucose 87 mg/dL Normal 70-100 Blood Urea Nitrogen 14 mg/dL Normal 6-24 Creatinine 1.04 mg/dL High 0.51-0.95 BUN/Creatinine Ratio 13.5 Normal 8-20 Calcium 9.4 mg/dL Normal 8.6-10.3 Egfr Non- 52.5 >60 Egfr 63.6 >60 1 Lipid Profile 02/06/2019 [facility] Triglycerides 48 mg/dL 2 (Trig/Chol/HDL) [address] [place], [place] [id number] [phone] Cholesterol 251 mg/dL 3 HDL Cholesterol 112.8 mg/dL 4 LDL Cholesterol 129 mg/dL 5 1 Because ethnic data is not always readily available, this report includes an eGFR for both -Americans and non- Americans. The National Kidney Disease Education Program (NKDEP) does not endorse the use of the MDRD equation for patients that are not between the ages of 18 and 70, are , have extremes of body size, muscle mass, or nutritional status, or are non- or non-. According to the National Kidney Foundation, irrespective of diagnosis, the stage of the disease is based on the level of kidney function: Stage Description GFR(mL/min/1.73 m(2)) 1 Kidney damage with normal or decreased GFR 90 2 Kidney damage with mild decrease in GFR 60-89 3 Moderate decrease in GFR 30-59 4 Severe decrease in GFR 15-29 5 Kidney failure <15 (or dialysis) 2 Desirable: <150 Borderline High: 150-199 High: 200-499 Very High: >500 3 Desirable: <200 Borderline High: 200-239 High: >239 4 Low: <40 Desirable: 40-60 High: >60 5 Desirable: <100 Near Optimal: 100-129 Borderline High: 130-159 High: 160-189 Very High: >189 Procedures Date Code Description Status 04/27/2019 89375 Removal Devitalization Tissue Wound Less Than Equal 20 Completed Square CM 04/20/2019 00380 Removal Devitalization Tissue Wound Less Than Equal 20 Completed Square CM 09/03/2018 [id number] Bone Mineral Density Test Completed 09/03/2018 [id number] Mammogram Completed 06/02/2014 [id number] Colonoscopy Completed 04/21/2014 [id number] Mammogram Completed 09/02/2011 [id number] Diabetic Retinal Eye Exam Completed 07/09/2007 [id number] Colonoscopy Completed 03/19/2006 [id number] Colonoscopy Completed Medical Devices Description No Information Available Encounters Type Date Location Provider Dx Diagnosis Office Visit 05/08/2019 Wound Care Debbi Mendez, S51.801D Unspecified open 12:45p [place] [facility] [place], THERMODYNAMICS PROFESSOR-BC wound of right forearm, subs encntr Office Visit 04/20/2019 Wound Care Debbi Mendez, S51.801A Unspecified open 1:45p [place] [facility], THERMODYNAMICS PROFESSOR-BC wound of right forearm, initial encounter Office Visit 02/12/2019 [facility] Wen I10 Essential (primary) 2:20p Medicine - Elkin Noble M.D. hypertension Assessments Date Code Description Provider 07/21/2019 J01.90 Acute sinusitis, unspecified Feli Joyner, N.P. 05/08/2019 S51.801D Unspecified open wound of right Debbi Mendez DNP, RN , forearm, subsequent encounter [facility] 04/27/2019 S51.801A Unspecified open wound of right Debbi Mendez DNP, RN , forearm, initial encounter [facility] 04/20/2019 S51.801A Unspecified open wound of right Debbi Mendez DNP, RN , forearm, initial encounter [facility] 04/17/2019 S51.811D Laceration without foreign body of Nurse Visit A right forearm, subsequent encounter 02/12/2019 I10 Essential (primary) hypertension Wen Noble M.D. Plan of Treatment Future Appointment(s):08/27/2019 11:00 am - Wen Noble M.D. at [facility] Medicine - [facility]07/21/2019 - Feli Joyner N.P.J01.90 Acute sinusitis , unspecifiedNew Medication:Amoxicillin/Clavulanate Potassium 875-125 mg - one tablet by mouth twice daily for 10 daysComments:For your sinus infection: I sent a prescription for Augmentin to the pharmacy. Take 1 tablet every 12 hours until they are gone. Take this with a little food. If your symptoms do not improve call the office. Functional Status Description No Information Available Mental Status Description No Information Available Referrals Description No Information Available
[2019-09-03 14:21] VITALS: BP 147/80
--- NOTE | 2019-09-03 14:55 | UC ---
Lower Extremity/Ankle HPI - HPI Summary HPI Summary: 68-year-old female presents with 5 day history of right lateral foot pain and swelling. Patient states that 2 weeks ago she was descending a step ladder and missed the bottom step causing a twisting injury to the foot although states did not have any pain at that time. Patient has history of osteoarthritis, fibromyalgia, and chronic pain syndrome. She is presently on Celebrex and taking tramadol as needed with some relief in the pain. She is able to walk and bear weight on the foot although with discomfort. She has an appointment with the civil engineering design draftsperson on 09/25/2019. Denies ecchymosis, numbness, or tingling. - History of Current Complaint Chief Complaint: UCLowerExtremity Stated Complaint: LUMP ON BOTTON OF FOOT Time Seen by Provider: 09/03/19 14:01 Hx Obtained From: Patient Pain Intensity: 5 - Allergies/Home Medications Allergies/Adverse Reactions: Allergies Allergy/AdvReac Type Severity Reaction Status Date / Time chlorthalidone Allergy Unknown Verified 09/03/19 12:07 Reaction Details citalopram [From Celexa] Allergy Itching Verified 09/03/19 12:07 lisinopril Allergy Anaphylatic Verified 09/03/19 12:07 Shock morphine Allergy Itching Verified 09/03/19 12:07 tobramycin Allergy Unknown Verified 09/03/19 12:07 Reaction Details Home Medications: Home Medications Labetalol TAB* [Trandate TAB*] 100 mg PO BID 09/03/19 [History Confirmed ] [place]-3 Acid Ethyl Esters [Lovaza 1 gm] 1 cap PO DAILY 09/03/19 [History Confirmed 09/03/19] PMH/Surg Hx/FS Hx/Imm Hx - Additional Past Medical History Additional PMH: Arthritis, fibromyalgia, chronic pain syndrome Cardiovascular History: Hypertension GI/ History: Gastroesophageal Reflux Psychological History: Depression - Surgical History Surgical History: Yes Surgery Procedure, Year, and Place: L knee replacement, Gastro bypass, tubal, R carpel tunnel, choley, R shoulder - Family History Known Family History: Positive: Cardiac Disease, Other - Osteoarthritis - Social History Occupation: Retired Lives: Alone Alcohol Use: None Substance Use Type: None Smoking Status (MU): Former Smoker Type: Cigarettes Amount Used/How Often: 2 ppd Length of Time of Smoking/Using Tobacco: 20 yrs When Did the Patient Quit Smoking/Using Tobacco: 2000 - Immunization History Most Recent Influenza Vaccination: last year Most Recent Tetanus Shot: 2019 Most Recent Pneumonia Vaccination: never Review of Systems All Other Systems Reviewed And Are Negative: Yes Constitutional: Positive: Negative Skin: Negative: Rash, Bruising Respiratory: Positive: Negative Cardiovascular: Positive: Negative Gastrointestinal: Positive: Negative Genitourinary: Positive: Negative Motor: Negative: Weakness Neurovascular: Negative: Decreased Sensation Musculoskeletal: Positive: Other: - See HPI. Negative: Calf Tenderness Neurological: Positive: Negative Is Patient Immunocompromised?: No Physical Exam - Summary Physical Exam Summary: GENERAL APPEARANCE: Well developed, well nourished, alert and cooperative, and appears to be in no acute distress. CARDIAC: Normal S1 and S2. No S3, S4 or murmurs. Rhythm is regular. There is no peripheral edema, cyanosis or pallor. Extremities are warm and well perfused. Capillary refill is less than 2 seconds. Peripheral pulses intact. LUNGS: Clear to auscultation without rales, rhonchi, wheezing or diminished breath sounds. ABDOMEN: Positive bowel sounds. Soft, nondistended, nontender. No guarding or rebound. No masses or hepatosplenomegally. MUSKULOSKELETAL: Normal muscular development. Normal gait. EXTREMITIES: Tenderness over the right 4th and 5th MTP joints without erythema, ecchymosis, edema, or gross deformity. Full ROM to all toes. Circulation and sensation intact. SKIN: Skin normal color, texture and turgor with no lesions or eruptions. Triage Information Reviewed: Yes Vital Signs: Initial Vital Signs Temp 98.2 F 09/03/19 12:03 Pulse 64 09/03/19 12:03 Resp 18 09/03/19 12:03 BP 150/68 09/03/19 12:03 Pulse Ox 99 09/03/19 12:03 Vital Signs Reviewed: Yes Diagnostics - Radiology No standard instances Radiology Interpretation Completed By: Radiologist Summary of Radiographic Findings: Order Information: FOOT RIGHT 3+ VWS. TECHNIQUE: 3 views of the right foot were obtained. FINDINGS: The bones appear osteopenic and in normal alignment. No fracture is seen. There appears to be severe osteoarthritic change at the tarsometatarsal joints. IMPRESSION: 1. NO EVIDENCE FOR FRACTURE. 2. SEVERE OSTEOARTHRITIC CHANGE. Lower Extremity Course/Dx - Course Course Of Treatment: 68-year-old female presents with 5 day history of right lateral foot pain and swelling. Patient states that 2 weeks ago she was descending a step ladder and missed the bottom step causing a twisting injury to the foot although states did not have any pain at that time. Patient has history of osteoarthritis, fibromyalgia, and chronic pain syndrome. She is presently on Celebrex and taking tramadol as needed with some relief in the pain. She is able to walk and bear weight on the foot although with discomfort. She has an appointment with the civil engineering design draftsperson on 09/25/2019. Denies ecchymosis, numbness, or tingling. Afebrile. Hypertensive otherwise vital signs stable. On exam patient had tenderness over the right 4th and 5th MTP joints without erythema, ecchymosis, edema, or gross deformity. Full ROM to all toes. Circulation and sensation intact. X-ray showed severe osteoarthritic change at the tarsometatarsal joints but no evidence of fracture. Reviewed results with the patient. Recommending conservative treatment for right foot pain likely secondary to osteoarthritis. She is to continue to take her Celebrex and pain medications as prescribed. Recommend that she supplement with some acetaminophen according to directions as needed. She is to follow-up with her primary care provider in 3-5 days if symptoms are not improving. Also recommended that she keep her appointment with podiatry as well for further evaluation. Anticipatory guidance and warning symptoms were reviewed with the patient. Verbalizes understanding and agrees with plan of care. - Differential Dx/Diagnosis Differential Diagnosis/HQI/PQRI: Arthritis, Cellulitis, Contusion, Fracture ( Closed), Sprain, Tendonitis Provider Diagnosis: Right foot pain Discharge ED - Sign-Out/Discharge Documenting (check all that apply): Patient Departure All imaging exams completed and their final reports reviewed: Yes - Discharge Plan Condition: Stable Disposition: HOME Patient Education Materials: Arthralgia (ED) Referrals: Wen Noble MD [Primary Care Provider] - 3 Days Additional Instructions: The x-ray performed in the clinic today showed no evidence of a fracture. There is evidence of significant arthritis of the tarsometatarsal joints. Rest the foot as much as possible. You may continue to walk and bear weight as tolerated. Apply ice to the affected area for 15-20 minutes at least 4 times a day to help with the pain and swelling. Elevate the foot to help reduce swelling. Continue to take your Celebrex as directed. You may also take acetaminophen (Tylenol) according to directions as needed for pain. Follow up with your primary care provider in 3-5 days if symptoms do not improve. Seek immediate medical attention if you have severe pain not managed with pain medication, you are unable to walk or bear any weight, or have any worsening of symptoms. - Billing Disposition and Condition Condition: STABLE Disposition: Home
== END 2019-09-03 15:10 | disposition home or self-care (01) ==
LOC: UCEAST 11:17
DX: M79.671 Pain in right foot (principal); M19.071 Primary osteoarthritis, right ankle and foot; I10 Essential (primary) hypertension; Z88.5 Allergy status to narcotic agent; Z88.8 Allergy status to other drugs, medicaments and biological substances; Z87.891 Personal history of nicotine dependence
CPT/HCPCS: 99211; G0463